=== PATIENT | female | born 1995 | race African-American/Black ===

== ENCOUNTER 2018-08-31 08:18 | Emergency (ER) | payer SELFPAY ==
[2018-08-31 08:20] VITALS: BMI 31.1
[2018-08-31 08:46] LABS: BASOPHILS 0.5 % (0-2); EOSINOPHILS 1.7 % (0-7); HEMATOCRIT 28.4 % (36.0-48.0); HEMOGLOBIN 8.5 g/dL (12-16); LYMPHOCYTES 35.6 % (15-50); MCH 20.3 pg (26.0-34.0); MCHC 29.9 g/dL (31.0-37.0); MCV 67.9 fL (80.0-100.0); MEAN PLATELET VOLUME 9.8 fL (7.4-10.4); MONOCYTES 10.4 % (2-11); NEUTROPHILS 51.8 % (40-80); PLATELET COUNT 379 10x3/uL (130-400); RBC 4.18 10x6/uL (4.00-5.40); RDW 15.9 % (11.5-14.5); WBC 4.2 10x3/uL (4.8-10.8)
[2018-08-31 09:02] LABS: HCG SERUM NEGATIVE (NEGATIVE)
[2018-08-31 09:25] LABS: APPEARANCE SL CLDY (CLEAR); BACTERIA MODERATE /hpf (NONE SEEN); BILIRUBIN NEGATIVE (NEGATIVE); COLOR YELLOW (YELLOW); EPITHELIAL CELLS OCC /hpf (0-5); GLUCOSE NEGATIVE (NEGATIVE); KETONE NEGATIVE (NEGATIVE); MUCUS <1+ /lpf (NONE SEEN); NITRITE NEGATIVE (NEGATIVE); PROTEIN TRACE mg/dL (NEGATIVE); RED CELLS - URINE 25-50 /hpf (0-5); WHITE CELLS - URINE OCC /hpf (0-5)
[2018-08-31] MEDS ORDERED: FLAGYL500 MG PO (09:47)
[2018-08-31] MEDS ORDERED: FERROUS SULFAT325 MG PO (09:47)
[2018-08-31] MEDS ORDERED: ESTRACE2 MG PO (09:51)
[2018-08-31 09:54] VITALS: BP 115/68
== END 2018-08-31 09:54 | disposition home or self-care (01) ==
LOC: D.ER 08:18
PROVIDERS: Emergency Medicine
DX: N93.9 Abnormal uterine and vaginal bleeding, unspecified (principal); D64.9 Anemia, unspecified